=== PATIENT | female | born 1965 | race Caucasian/White ===

== ENCOUNTER 2017-03-26 07:35 | Inpatient (IN) | payer OTHER, MEDICAID ==
[~2017-03-26] VITALS: Ht 165.1 cm; Wt 65.4 kg
[2017-03-26 07:42] VITALS: BP 158/79; PULSE 69; RESP 18; TEMP 98.7; O2SAT 99
[2017-03-26] MEDS ORDERED: ACETAMINOPHEN 325 MG TAB PO ONE (07:45)
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
[2017-03-26 09:05] LABS: BASOPHIL # 0.1 TH/MM3 (0-0.2); BASOPHIL % 0.8 % (0.0-2.0); EOSINOPHIL # 0.1 TH/MM3 (0-0.4); EOSINOPHIL % 0.6 % (0.0-4.0); HEMATOCRIT 36.8 % (35.0-46.0); HEMO FLAGS DIFF FINAL; LYMPH % 16.1 % (9.0-44.0); LYMPHOCYTE # 1.3 TH/MM3 (1.0-4.8); MEAN CELL VOLUME 93.1 FL (80.0-100.0); MEAN CORPUSCULAR HEMOGLOBIN 30.7 PG (27.0-34.0); MEAN CORPUSCULAR HGB CONC 32.9 % (32.0-36.0); MONO % 10.1 % (0.0-8.0); NEUT % 72.4 % (16.0-70.0); PLATELET COUNT 204 TH/MM3 (150-450); RED BLOOD COUNT 3.96 MIL/MM3 (4.00-5.30); RED CELL DISTRIBUTION WIDTH 13.8 % (11.6-17.2); WHITE BLOOD COUNT 8.3 TH/MM3 (4.0-11.0)
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
[2017-03-26 09:23] LABS: BICARBONATE 24.1 MEQ/L (21.0-32.0); POTASSIUM 3.4 MEQ/L (3.5-5.1)
[2017-03-26 09:24] LABS: APTT (PATIENT) 23.4 SEC (24.3-30.1); PROTHROMBIN TIME - PATIENT 10.6 SEC (9.8-11.6)
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
[2017-03-26] MEDS ORDERED: ONDANSETRON HCL 4 MG/2 ML VIAL IV PUSH ONE ×2 (10:15→11:00)
[2017-03-26] MEDS ORDERED: MORPHINE SULFATE 4 MG/ML INJ IV PUSH ONE (10:15)
[2017-03-26] MEDS: NS + KCL 20 MEQ INJ 1,000 ML IV SCH ×2 (10:16→21:43)
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
[2017-03-26] MEDS ORDERED: SODIUM CHLORIDE 0.9% FLUSH 10 ML FLUSH IV FLUSH PRN (10:45)
[2017-03-26 10:55] VITALS: O2SAT 99
[2017-03-26] MEDS ORDERED: PHENYLEPH/NS 1000 MCG/10 ML SYR IV ONE (11:00)
[2017-03-26] MEDS ORDERED: KETOROLAC TROMETHAMINE 60 MG/2 ML (IM) VIAL IM ONE (11:00)
[2017-03-26] MEDS ORDERED: PROPOFOL 200 MG/20 ML AMP IV ONE (11:00)
[2017-03-26] MEDS ORDERED: ePHEDrine/NS 25 MG/5 ML SYR IV ONE (11:00)
[2017-03-26] MEDS ORDERED: MORPHINE SULFATE 4 MG/ML INJ IV PUSH PRN (11:00)
[2017-03-26] MEDS ORDERED: MIDAZOLAM HCL 2 MG/2 ML VIAL IV ONE (11:04)
[2017-03-26] MEDS ORDERED: ONDANSETRON HCL 4 MG/2 ML VIAL IV PUSH PRN (11:15)
[2017-03-26] MEDS ORDERED: ENALAPRILAT 1.25 MG/ML VIAL IV PUSH PRN (11:15)
[2017-03-26] MEDS ORDERED: ACETAMINOPHEN 325 MG TAB PO PRN (11:15)
[2017-03-26 11:49] VITALS: BP 95/52; PULSE 58; RESP 18; TEMP 98.1; O2SAT 99
[2017-03-26] MEDS ORDERED: LACTATED RINGER'S 1000 ML INJ 1,000 ML IV ONE (12:00)
[2017-03-26] MEDS ORDERED: LIDOCAINE HCL 1% PF 5 ML AMPULE OTHER ONE (12:00)
[2017-03-26] MEDS ORDERED: ROCURONIUM INJ 50 MG/5 ML SYRINGE IV PUSH ONE (12:00)
[2017-03-26] MEDS ORDERED: GLYCOPYRROLATE 0.2 MG/ML VIAL IV ONE (12:00)
[2017-03-26] MEDS ORDERED: DEXAMETHASONE SOD PHOS 4 MG/ML VIAL IV ONE (12:00)
[2017-03-26] MEDS: MORPHINE SULFATE 4 MG/ML INJ IV PUSH PRN (14:04)
[2017-03-26 15:30] VITALS: BP 108/69; PULSE 60; RESP 16; TEMP 97.9; O2SAT 100
[2017-03-26] MEDS ORDERED: LIDOCAINE HCL 2% 50 ML VIAL ONE (16:19)
[2017-03-26] MEDS ORDERED: BUPIVACAINE HCL PF 0.5% 30 ML VIAL ONE (16:19)
[2017-03-26] MEDS ORDERED: ceFAZolin INJ 1,000 MG VIAL ONE (16:20)
[2017-03-26] MEDS ORDERED: GENTAMICIN SULFATE 80 MG/2 ML VIAL ONE (16:20)
[2017-03-26] MEDS ORDERED: ACETAMINOPHEN 1000 MG/100 ML 100 ML IV ONE (16:24)
[2017-03-26] MEDS ORDERED: DO NOT ADM ANY ANTICOAGULANT DRUGS PRN (19:24)
--- NOTE | 2017-03-26 19:31 | RADRPT ---
EXAM DATE/TIME: 03/26/2017 18:45 [facility] COMPARISON: CT FOOT RIGHT W/O CONTRAST, March 26, 2017, 9:07. INDICATIONS : Right heel open reduction internal fixation. MEDICAL HISTORY : None. SURGICAL HISTORY : None. ENCOUNTER: Subsequent ACUITY: 1 day PAIN SCORE: Non-responsive. LOCATION: Right heel FINDINGS: Two view examination of the right heel demonstrates demonstrates intraoperative open reduction and in ternal fixation of the previously identified comminuted calcaneal fracture with sideplate and multipl e osseous screws. Fracture fragments appear to be in excellent anatomic alignment. CONCLUSION: Successful open reduction and internal fixation of comminuted calcaneal fracture as above. Diony Casarez MD on March 26, 2017 at 19:28 Board Certified Radiologist. This report was verified electronically.
[2017-03-26] MEDS ORDERED: *morphine SULFATE 8 MG/ML PERIprocedure ONLY ONE (19:44)
[2017-03-26 19:55] LABS: HEMATOCRIT 36.6 % (35.0-46.0); MEAN CELL VOLUME 92.6 FL (80.0-100.0); MEAN CORPUSCULAR HEMOGLOBIN 30.8 PG (27.0-34.0); MEAN CORPUSCULAR HGB CONC 33.2 % (32.0-36.0); PLATELET COUNT 189 TH/MM3 (150-450); RED BLOOD COUNT 3.96 MIL/MM3 (4.00-5.30); RED CELL DISTRIBUTION WIDTH 13.8 % (11.6-17.2); REVIEW FLAG FINAL; WHITE BLOOD COUNT 9.7 TH/MM3 (4.0-11.0)
[2017-03-26 20:23] LABS: BICARBONATE 24.9 MEQ/L (21.0-32.0)
[2017-03-26 20:25] VITALS: BP 107/63; PULSE 66; RESP 16; TEMP 96.5; O2SAT 98
[2017-03-26] MEDS: DOCUSATE SODIUM 50 MG/SENNA 8.6 MG TAB PO SCH (21:42)
[2017-03-26] MEDS: ACETAMINOPHEN/HYDROcodone 325 MG/5 MG TAB PO PRN (21:42)
[2017-03-26] MEDS: SODIUM CHLORIDE 0.9% FLUSH 10 ML FLUSH IV FLUSH SCH (21:42)
[2017-03-27] VITALS: BP 94/50; PULSE 54; RESP 17; TEMP 97.2; O2SAT 98
[2017-03-27 04:00] VITALS: BP 99/51; PULSE 65; RESP 16; TEMP 97.4; O2SAT 97
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
[2017-03-27] MEDS: NS + KCL 20 MEQ INJ 1,000 ML IV SCH ×3 (05:25→19:25)
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
[2017-03-27 08:00] VITALS: BP_SYST 100; PULSE 67; RESP 18; TEMP 97.4; O2SAT 98
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
[2017-03-27] MEDS: SODIUM CHLORIDE 0.9% FLUSH 10 ML FLUSH IV FLUSH SCH ×2 (08:21→19:25)
[2017-03-27] MEDS: DOCUSATE SODIUM 50 MG/SENNA 8.6 MG TAB PO SCH ×2 (08:22→20:39)
[2017-03-27] MEDS: ACETAMINOPHEN/HYDROcodone 325 MG/5 MG TAB PO PRN ×2 (08:22→12:43)
[2017-03-27 10:40] VITALS: O2SAT 95
[2017-03-27 12:00] VITALS: BP 104/55; PULSE 84; RESP 18; TEMP 97.6; O2SAT 99
--- NOTE | 2017-03-27 12:03 | EKG ---
Date Performed: 03/26/2017 Time Performed: 09:26:46 PTAGE: 51 years EKG: Sinus rhythm WITH OCCASIONAL SUPRAVENTRICULAR PREMATURE COMPLEXES T-WAVE ABNORMALITY, CONSIDER ANTERIOR ISCHEMIA ABNORMAL ECG NO PREVIOUS TRACING DOCTOR: Merlin Clemens Interpretating Date/Time 03/27/2017 12:02:07
[2017-03-27] MEDS: traMADol HCL 50 MG TAB PO PRN ×2 (17:25→22:28)
[2017-03-27] MEDS: ENOXAPARIN SODIUM 30 MG/0.3 ML SYRINGE SQ SCH (19:05)
--- NOTE | 2017-03-27 19:26 | PD.POD ---
Subjective Podiatric Problems POD # 1 right ORIF calcaneus Pain score: 0 Past Med/Surg/Social History Social History Smoking Status: Unknown If Ever Smoked Objective Vital Signs Vital Signs Date Time Temp Pulse Resp B/P (MAP) Pulse Ox O2 Delivery O2 Flow Rate FiO2 03/27/17 12:00 97.6 84 18 104/55 (71) 99 03/27/17 10:40 95 21 03/27/17 08:00 97.4 67 18 100/ 98 03/27/17 04:00 97.4 65 16 99/51 (67) 97 03/27/17 00:00 97.2 54 17 94/50 (65) 98 03/26/17 20:25 96.5 66 16 107/63 (78) 98 03/26/17 20:00 88 16 125/66 (85) 96 Room Air 03/26/17 19:45 74 16 123/69 (87) 97 Room Air 03/26/17 19:30 80 16 116/66 (83) 97 Room Air Coded Allergies: codeine (Verified Adverse Reaction, Severe, Nausea/Vomiting, 03/26/17) Other Results Laboratory Tests Test 03/26/17 08:45 03/26/17 19:34 White Blood Count 8.3 TH/MM3 9.7 TH/MM3 Red Blood Count 3.96 MIL/MM3 3.96 MIL/MM3 Hemoglobin 12.1 GM/DL 12.2 GM/DL Hematocrit 36.8 % 36.6 % Mean Corpuscular Volume 93.1 FL 92.6 FL Mean Corpuscular Hemoglobin 30.7 PG 30.8 PG Mean Corpuscular Hemoglobin Concent 32.9 % 33.2 % Red Cell Distribution Width 13.8 % 13.8 % Platelet Count 204 TH/MM3 189 TH/MM3 Mean Platelet Volume 9.8 FL 9.8 FL Neutrophils (%) (Auto) 72.4 % Lymphocytes (%) (Auto) 16.1 % Monocytes (%) (Auto) 10.1 % Eosinophils (%) (Auto) 0.6 % Basophils (%) (Auto) 0.8 % Neutrophils # (Auto) 6.0 TH/MM3 Lymphocytes # (Auto) 1.3 TH/MM3 Monocytes # (Auto) 0.8 TH/MM3 Eosinophils # (Auto) 0.1 TH/MM3 Basophils # (Auto) 0.1 TH/MM3 CBC Comment DIFF FINAL Differential Comment Prothrombin Time 10.6 SEC Prothromb Time International Ratio 1.0 RATIO Activated Partial Thromboplast Time 23.4 SEC Blood Urea Nitrogen 16 MG/DL 9 MG/DL Creatinine 0.69 MG/DL 0.72 MG/DL Random Glucose 110 MG/DL 126 MG/DL Calcium Level 8.4 MG/DL 8.1 MG/DL Sodium Level 134 MEQ/L 138 MEQ/L Potassium Level 3.4 MEQ/L 4.0 MEQ/L Chloride Level 102 MEQ/L 106 MEQ/L Carbon Dioxide Level 24.1 MEQ/L 24.9 MEQ/L Anion Gap 8 MEQ/L 7 MEQ/L Estimat Glomerular Filtration Rate 90 ML/MIN 86 ML/MIN 25-Hydroxy Vitamin D Total 40.2 ng/ML Exam-Podiatry Musculoskeletal Exam Details RLE Intact passive ROM at the digits. Protective sensation intact to light touch CFT < 3 sec 1-5 , right. Assessment & Plan Diagnosis: (1) Status post open reduction with internal fixation of fracture ICD Codes: Z96.7 - Presence of other bone and tendon implants; Z87.81 - Personal history of (healed) traumatic fracture (2) Calcaneal fracture ICD Codes: S92.009A - Unspecified fracture of unspecified calcaneus, initial encounter for closed fracture Status: Acute (3) Cuboid fracture ICD Codes: S92.213A - Displaced fracture of cuboid bone of unspecified foot, initial encounter for closed fracture Status: Acute A/P Doing well post op. Plan for dressing change on 03/28/17 Pending right foot xrays post op. Problem Qualifiers (1) Calcaneal fracture: (2) Cuboid fracture: Qualified Codes: S92.211A - Displaced fracture of cuboid bone of right foot, initial encounter for closed fracture Tami Chao DPM Mar 27, 2017 19:26
[2017-03-27 20:00] VITALS: BP 118/70; PULSE 60; RESP 16; TEMP 98.9; O2SAT 98
--- NOTE | 2017-03-27 20:09 | RADRPT ---
EXAM DATE/TIME: 03/27/2017 19:18 [facility] COMPARISON: No previous studies available for comparison. INDICATIONS : Post surgical repair. MEDICAL HISTORY : Fracture, calcaneus. SURGICAL HISTORY : Surgical repair, calcaneus. ENCOUNTER: Initial ACUITY: 1 day PAIN SCORE: 10/10 LOCATION: Right foot, heel. FINDINGS: There is plate and screw fixation of a comminuted calcaneal fracture with near-anatomic alignment. Th ere is air and fluid in the soft tissues. Relatively nondisplaced cuboid fracture present. CONCLUSION: 1. Fixation of calcaneal fracture. Zurdo Oneill MD on March 27, 2017 at 20:06 Board Certified Radiologist. This report was verified electronically.
[2017-03-27] MEDS: ONDANSETRON ODT 4 MG TAB PO PRN (20:39)
[2017-03-27] MEDS: MORPHINE SULFATE 4 MG/ML INJ IV PUSH PRN ×2 (20:40→23:48)
[2017-03-27] MEDS: TEMAZEPAM 15 MG CAP PO PRN (22:49)
[2017-03-28] VITALS: BP 112/64; PULSE 85; RESP 18; TEMP 99.8; O2SAT 97
[2017-03-28] MEDS: MORPHINE SULFATE 4 MG/ML INJ IV PUSH PRN ×2 (05:13→08:10)
[2017-03-28] MEDS: traMADol HCL 50 MG TAB PO PRN ×5 (06:16→22:57)
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
[2017-03-28] MEDS ORDERED: WALKER WHEELS/F1 MIS (07:20)
[2017-03-28 08:01] VITALS: BP 113/57; PULSE 68; RESP 16; TEMP 98; O2SAT 94
[2017-03-28] MEDS: ACETAMINOPHEN 1000 MG/100 ML VIAL IV SCH ×3 (08:10→19:21)
[2017-03-28] MEDS: SODIUM CHLORIDE 0.9% FLUSH 10 ML FLUSH IV FLUSH SCH ×2 (08:25→19:22)
[2017-03-28] MEDS: DOCUSATE SODIUM 50 MG/SENNA 8.6 MG TAB PO SCH ×2 (08:26→19:28)
[2017-03-28 09:19] LABS: HEMATOCRIT 33.1 % (35.0-46.0); MEAN CELL VOLUME 93.1 FL (80.0-100.0); MEAN CORPUSCULAR HEMOGLOBIN 30.7 PG (27.0-34.0); MEAN CORPUSCULAR HGB CONC 32.9 % (32.0-36.0); PLATELET COUNT 165 TH/MM3 (150-450); RED BLOOD COUNT 3.55 MIL/MM3 (4.00-5.30); RED CELL DISTRIBUTION WIDTH 13.9 % (11.6-17.2); REVIEW FLAG FINAL; WHITE BLOOD COUNT 10.9 TH/MM3 (4.0-11.0)
[2017-03-28 10:14] LABS: BICARBONATE 27.4 MEQ/L (21.0-32.0); POTASSIUM 3.8 MEQ/L (3.5-5.1)
[2017-03-28] MEDS: NS + KCL 20 MEQ INJ 1,000 ML IV SCH ×2 (10:44→19:22)
[2017-03-28] MEDS: ONDANSETRON ODT 4 MG TAB PO PRN (11:20)
[2017-03-28 12:00] VITALS: BP 88/54; PULSE 55; RESP 14; TEMP 96.4; O2SAT 96
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
[2017-03-28 15:09] VITALS: BP 86/50; PULSE 68; RESP 16; TEMP 97.6; O2SAT 99
[2017-03-28] MEDS: ENOXAPARIN SODIUM 30 MG/0.3 ML SYRINGE SQ SCH (17:40)
[2017-03-28 20:59] VITALS: BP 112/62; PULSE 70; RESP 17; TEMP 96.9; O2SAT 97
[2017-03-28 23:20] VITALS: BP 99/55; PULSE 60; RESP 18; TEMP 97.9; O2SAT 96
[2017-03-29] MEDS: ACETAMINOPHEN 1000 MG/100 ML VIAL IV SCH ×4 (01:30→21:58)
[2017-03-29] MEDS: TEMAZEPAM 15 MG CAP PO PRN (01:30)
[2017-03-29 07:39] VITALS: BP 114/61; PULSE 87; RESP 17; TEMP 99.1; O2SAT 98
[2017-03-29] MEDS: NS + KCL 20 MEQ INJ 1,000 ML IV SCH (08:00)
[2017-03-29] MEDS: DOCUSATE SODIUM 50 MG/SENNA 8.6 MG TAB PO SCH ×2 (08:22→21:59)
[2017-03-29] MEDS: traMADol HCL 50 MG TAB PO PRN ×4 (08:22→21:59)
[2017-03-29] MEDS ORDERED: XARE10TA PO (08:30)
[2017-03-29] MEDS: SODIUM CHLORIDE 0.9% FLUSH 10 ML FLUSH IV FLUSH SCH ×2 (08:36→21:58)
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
[2017-03-29 11:30] VITALS: BP 101/51; PULSE 68; RESP 17; TEMP 98.9; O2SAT 98
[2017-03-29 16:00] VITALS: BP 96/54; PULSE 67; RESP 17; TEMP 98.4; O2SAT 98
[2017-03-29] MEDS: ENOXAPARIN SODIUM 30 MG/0.3 ML SYRINGE SQ SCH (18:09)
[2017-03-29 19:10] VITALS: BP 101/57; PULSE 75; RESP 17; TEMP 98.5; O2SAT 98
[2017-03-29 23:16] VITALS: BP 102/56; PULSE 79; RESP 18; TEMP 99.2; O2SAT 97
[2017-03-30] MEDS: ACETAMINOPHEN 1000 MG/100 ML VIAL IV SCH ×4 (01:47→20:00)
[2017-03-30] MEDS: traMADol HCL 50 MG TAB PO PRN ×6 (01:47→22:00)
[2017-03-30 04:33] LABS: HEMATOCRIT 31.2 % (35.0-46.0); MEAN CORPUSCULAR HEMOGLOBIN 31.2 PG (27.0-34.0); MEAN CORPUSCULAR HGB CONC 33.6 % (32.0-36.0); PLATELET COUNT 171 TH/MM3 (150-450); RED BLOOD COUNT 3.35 MIL/MM3 (4.00-5.30); RED CELL DISTRIBUTION WIDTH 13.9 % (11.6-17.2); REVIEW FLAG FINAL; WHITE BLOOD COUNT 9.2 TH/MM3 (4.0-11.0)
[2017-03-30 05:06] LABS: BICARBONATE 28.1 MEQ/L (21.0-32.0); POTASSIUM 4.1 MEQ/L (3.5-5.1)
[2017-03-30 07:21] VITALS: BP 105/52; PULSE 70; RESP 16; TEMP 96.9; O2SAT 97
[2017-03-30] MEDS: DOCUSATE SODIUM 50 MG/SENNA 8.6 MG TAB PO SCH ×2 (07:47→20:01)
[2017-03-30] MEDS: SODIUM CHLORIDE 0.9% FLUSH 10 ML FLUSH IV FLUSH SCH ×2 (07:47→20:01)
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
[2017-03-30 12:00] VITALS: BP 114/68; PULSE 79; RESP 16; TEMP 97.2; O2SAT 94
[2017-03-30 16:00] VITALS: BP 111/55; PULSE 68; RESP 16; TEMP 98.4; O2SAT 96
[2017-03-30] MEDS: ENOXAPARIN SODIUM 30 MG/0.3 ML SYRINGE SQ SCH (17:55)
[2017-03-30 20:00] VITALS: BP 98/54; PULSE 81; RESP 16; TEMP 96.8; O2SAT 95
[2017-03-30] MEDS ORDERED: BISACODYL 10 MG SUPP RECTAL ONE (23:15)
[2017-03-31 00:40] VITALS: BP 114/57; PULSE 74; RESP 16; TEMP 98.2; O2SAT 98
[2017-03-31] MEDS: traMADol HCL 50 MG TAB PO PRN ×3 (01:53→12:18)
[2017-03-31] MEDS: ACETAMINOPHEN 1000 MG/100 ML VIAL IV SCH ×3 (01:53→13:34)
[2017-03-31 07:45] VITALS: BP 117/59; PULSE 82; RESP 16; TEMP 97; O2SAT 98
[2017-03-31 08:55] LABS: HEMATOCRIT 31.8 % (35.0-46.0); MEAN CORPUSCULAR HGB CONC 33.4 % (32.0-36.0); PLATELET COUNT 207 TH/MM3 (150-450); RED BLOOD COUNT 3.43 MIL/MM3 (4.00-5.30); RED CELL DISTRIBUTION WIDTH 13.6 % (11.6-17.2); REVIEW FLAG FINAL; WHITE BLOOD COUNT 8.8 TH/MM3 (4.0-11.0)
[2017-03-31] MEDS: DOCUSATE SODIUM 50 MG/SENNA 8.6 MG TAB PO SCH (09:00)
[2017-03-31] MEDS: SODIUM CHLORIDE 0.9% FLUSH 10 ML FLUSH IV FLUSH SCH (09:02)
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
[2017-03-31 11:25] VITALS: BP 114/56; PULSE 77; RESP 16; TEMP 98.2; O2SAT 97
[2017-03-31] MEDS ORDERED: ULTR50TA5 PO (12:12)
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
== END 2017-03-31 15:23 | disposition home or self-care (01) | DRG 504 ==
LOC: NEPE 07:35 → NEDA 09:57 → N06A 15:10
PROVIDERS: ADMIT Family Medicine; ATTEND Family Medicine
PROC: 0QSL04Z Reposition Right Tarsal with Internal Fixation Device, Open Approach (ICD-10-PCS; principal; 2017-03-27)
DX: S92.061A Displaced intraarticular fracture of right calcaneus, initial encounter for closed fracture (principal); E87.1 Hypo-osmolality and hyponatremia; E11.65 Type 2 diabetes mellitus with hyperglycemia; S92.211A Displaced fracture of cuboid bone of right foot, initial encounter for closed fracture; V43.52XA Car driver injured in collision with other type car in traffic accident, initial encounter; Y92.410 Unspecified street and highway as the place of occurrence of the external cause; E87.6 Hypokalemia
CPT/HCPCS: 73600; 73620; 73630; 73650; 73700; 76000; 80048; 82306; 85025; 85027; 85610; 85730; 86850; 86900; 86901; 93005; 94150; C1713; J0131; J0690; J1100; J1580; J1650; J1885; J2250; J2270; J2370; J2405; J3010; J3480; J7120